=== PATIENT | male | born 1945 | race Caucasian/White ===

== ENCOUNTER 2021-08-24 06:50 | Inpatient (IN) | payer MEDICARE, OTHER ==
[2021-08-22 11:35] LABS: Basophils # (auto) 0.1 10 ^3/uL (0-0.2); Basophils % (auto) 0.8 % (0.0-2.0); Eosinophils # (auto) 0.1 10 ^3/uL (0-0.8); Eosinophils % (auto) 0.9 % (0.0-7.0); Hematocrit 38.2 % (41.0-53.0); Hemoglobin 12.5 g/dL (13.5-17.5); Mean Corpuscular Hemoglobin 24.7 pg (28.0-32.0); Mean Corpuscular Hgb Conc. 32.7 g/dL (32.0-36.0); Mean Corpuscular Volume 75.5 fL (80.0-100.0); Monocytes # (auto) 0.9 10 ^3/uL (0-1.3); Monocytes % (auto) 6.7 % (0.0-12.0); Neutrophils # (auto) 7.9 10 ^3/uL (1.6-8.6); Neutrophils % (auto) 60.6 % (37.0-80.0); Red Blood Cells 5.05 10^6/uL (4.5-5.90); Red Cell Distribution Width 17.5 % (11.8-14.3)
[2021-08-22 12:02] LABS: INR 1.21 (0.9-1.15); Partial Thromboplastin Time 34.5 sec (23.6-33.0)
[2021-08-22 12:27] LABS: Urine Amorphous Crystal FEW /hpf (None Seen); Urine Bacteria FEW /hpf (None Seen); Urine Blood 1+ /uL (Negative); Urine Specific Gravity 1.024 (1.001-1.035); Urine WBC 2 /hpf (0 - 3)
[2021-08-22 13:14] LABS: Potassium 4.7 mmol/L (3.5-5.1)
[2021-08-22 13:45] LABS: BUN/Creatinine Ratio 10.1; Bilirubin, Total 0.3 mg/dL (0.2-1.0); Calcium 9.1 mg/dL (8.5-10.1); Total Protein 6.9 g/dL (6.4-8.2)
[2021-08-24] VITALS (20 sets, daily range): BP systolic 98–130; BP diastolic 44–63
[~2021-08-24] VITALS: Ht 182.9 cm; Wt 88.4 kg
[~2021-08-24 06:50] MED LIST: ALBUAER3 IN; ATOR20TA50 PO; CLIN300C8 PO; CLOP75TA28 PO; CLOT-32 EX; FENO160T8 PO; FLUT1AER3 IN; HYDR-3682 PO; LEVEMIR SC; LOSA-39 PO; METO25TA5 PO; NIFE1TAB30 PO; PANT40TA2 PO; SEMA2INJ SC; SITA100T7 PO; TRIA0.1O EX
[2021-08-24] MEDS ORDERED: VANCOMYCIN HCL 1000 MG VL ONE (07:34)
[2021-08-24] MEDS ORDERED: TRANEXAMIC ACID 20 ML ONE (07:35)
[2021-08-24] MEDS ORDERED: CLINDAMYCIN 600MG IV 50 ML IV ONE (07:50)
[2021-08-24] MEDS ORDERED: TETRACAINE 1% INJ 2 ML VIAL IJ ONE (07:54)
[2021-08-24] MEDS ORDERED: fentaNYL CITRATE 100 MCG/2 ML VL ONE (07:57)
[2021-08-24] MEDS ORDERED: MORPHINE SULF PF 2 MG/2 ML SYRG ONE (07:57)
[2021-08-24] MEDS ORDERED: MIDAZOLAM HCL 2MG/2ML 2ml VIAL (1mg/ml) ONE (07:57)
[2021-08-24] MEDS ORDERED: ONDANSETRON HCL 4 MG/2 ML VIAL IV ONE (08:00)
[2021-08-24] MEDS ORDERED: SUCCINYLCHOLINE CHLORIDE 20 MG/ML 10ML VIAL IV ONE (08:00)
[2021-08-24] MEDS ORDERED: LIDOCAINE HCL 100 MG/5ML (2%) SYRG INJ IV ONE (08:20)
[2021-08-24] MEDS ORDERED: PROPOFOL 10 MG/ML 20 ML IV ONE (09:28)
[2021-08-24] MEDS ORDERED: HYDROmorphone HCL 2 MG/ML VL ONE (09:33)
[2021-08-24] MEDS: SODIUM CHLORIDE 0.9% 1,000 ML IV SCH ×2 (11:30→19:30)
[2021-08-24] MEDS ORDERED: diphenhdrAMINE HCL 50 MG/1 ML VL IV PRN (11:30)
[2021-08-24] MEDS ORDERED: ONDANSETRON HCL 4 MG/2 ML VIAL IV PRN (11:30)
[2021-08-24] MEDS ORDERED: HYDROmorphone HCL 2 MG/ML VL IV PRN ×2 (11:30)
[2021-08-24] MEDS ORDERED: oxyCODONE HCL 5MG TAB PO PRN (11:30)
[2021-08-24] MEDS ORDERED: NALBUPHINE HCL 10 MG/1ml INJECTION SUBCUT ONE (11:30)
[2021-08-24] MEDS ORDERED: DexAMETHasone SOD PHOS 10MG/1ML VIAL INJ IV PRN (11:30)
[2021-08-24] MEDS ORDERED: NALOXONE HCL 0.4 MG/ML VIAL IV PRN (11:30)
[2021-08-24] MEDS ORDERED: DEXTROSE (50%) 50ML SYRG IV PRN (12:15)
[2021-08-24 13:26] LABS: Basophils # (auto) 0.1 10 ^3/uL (0-0.2); Basophils % (auto) 0.4 % (0.0-2.0); Eosinophils # (auto) 0.1 10 ^3/uL (0-0.8); Eosinophils % (auto) 0.2 % (0.0-7.0); Lymphocytes # (auto) 1.8 10 ^3/uL (0.4-5.4); Mean Corpuscular Hemoglobin 24.2 pg (28.0-32.0); Monocytes # (auto) 0.6 10 ^3/uL (0-1.3); Neutrophils % (auto) 88.8 % (37.0-80.0)
[2021-08-24 13:30] LABS: Hemoglobin 8.9 g/dL (13.5-17.5); Lymphocytes % (auto) 7.8 % (10.0-50.0); Mean Corpuscular Hgb Conc. 31.8 g/dL (32.0-36.0); Monocytes % (auto) 2.8 % (0.0-12.0); Neutrophils # (auto) 20.2 10 ^3/uL (1.6-8.6); Red Blood Cells 3.68 10^6/uL (4.5-5.90); Red Cell Distribution Width 17.4 % (11.8-14.3); White Blood Cell 22.8 10^3/uL (4.4-10.8)
[2021-08-24 13:59] LABS: Calcium 7.9 mg/dL (8.5-10.1)
[2021-08-24] MEDS: CLINDAMYCIN 600MG IV 50 ML IV SCH ×2 (14:00→21:34)
[2021-08-24] MEDS: hydrOXYzine 25 MG TAB or CAP PO SCH ×2 (14:00→21:35)
[2021-08-24 14:02] LABS: BUN/Creatinine Ratio 11.1
[2021-08-24] MEDS ORDERED: PROMETHAZINE HCL 25 MG/ML 1ML ONE (15:15)
[2021-08-24] MEDS ORDERED: PROMETHAZINE HCL 25 MG/ML 1ML IV ONE (15:15)
[2021-08-24 15:27] LABS: Potassium 5.8 mmol/L (3.5-5.1)
[2021-08-24 16:35] LABS: BUN/Creatinine Ratio 11.2; Calcium 7.8 mg/dL (8.5-10.1)
[2021-08-24 16:46] LABS: Albumin 2.6 g/dL (3.4-5.0); Bilirubin, Total 0.4 mg/dL (0.2-1.0); Total Protein 5.6 g/dL (6.4-8.2)
[2021-08-24 17:12] LABS: Potassium 7.4 mmol/L (3.5-5.1)
[2021-08-24] MEDS ORDERED: FUROSEMIDE 40 MG/4 ML VIAL ONE (17:24)
[2021-08-24] MEDS: KETOROLAC TROMETH 30 MG/ML 1ML VIAL IV SCH ×2 (18:00→23:48)
[2021-08-24] MEDS ORDERED: InsuLIN REG 1unit/0.01ml Soln (100units/ml) IV ONE ×2 (18:00→23:00)
[2021-08-24] MEDS ORDERED: SODIUM BICARBONATE 8.4% INJ 50ML SYRINGE IV ONE ×2 (18:00→23:00)
[2021-08-24] MEDS ORDERED: CALCIUM CHL 100MG/ML 1,000 MG in D5W 5% 100 ML IV ONE (18:00)
[2021-08-24] MEDS ORDERED: DEXTROSE (50%) 50ML SYRG IV ONE ×2 (18:00→23:00)
[2021-08-24] MEDS: ATORVASTATIN 20 MG TAB PO SCH (18:00)
[2021-08-24] MEDS: ACETAMINOPHEN 325 MG TAB PO SCH ×2 (18:00→23:52)
[2021-08-24] MEDS ORDERED: ALBUTEROL SULF HFA 90MCG INH 200DOSE IN SCH (18:00)
[2021-08-24] MEDS: InsuLIN REG 1unit/0.01ml Soln (100units/ml) SC SCH (18:01)
[2021-08-24] MEDS: ACCU-CHEK COMFORT CURVE STRIP VI SCH (18:01)
[2021-08-24] MEDS ORDERED: FUROSEMIDE 40 MG/4 ML VIAL IV ONE (18:45)
[2021-08-24] MEDS: ALBUTEROL SULF 2.5 MG/0.5ML(0.5%) NEB SOLN NEB SCH (18:51)
[2021-08-24] MEDS: CALCIUM CHL 100MG/ML 1,000 MG in D5W 5% 100 ML IV SCH ×2 (19:00→19:42)
[2021-08-24] MEDS: D5W/SOD CHL 0.45% 1,000 ML IV SCH (19:03)
[2021-08-24] MEDS: METOPROLOL TARTRATE 25 MG TAB PO SCH (21:35)
[2021-08-24 22:15] LABS: Albumin 2.3 g/dL (3.4-5.0); Calcium 9.5 mg/dL (8.5-10.1)
[2021-08-24 22:20] LABS: Bilirubin, Total 0.4 mg/dL (0.2-1.0); Total Protein 5.6 g/dL (6.4-8.2)
[2021-08-24 22:33] LABS: Potassium 6.1 mmol/L (3.5-5.1)
[2021-08-24] MEDS ORDERED: ALBUTEROL SULF 2.5 MG/0.5ML(0.5%) NEB SOLN NEB ONE (23:00)
[2021-08-24] MEDS ORDERED: CALCIUM GLUC 1,000mg/50ml-NS 50 ML IV ONE (23:00)
[2021-08-25] VITALS (14 sets, daily range): BP systolic 101–137; BP diastolic 41–59
[2021-08-25] MEDS: SODIUM CHLORIDE 0.9% 1,000 ML IV SCH ×3 (03:14→19:32)
[2021-08-25 03:58] LABS: Basophils # (auto) 0 10 ^3/uL (0-0.2); Eosinophils # (auto) 0 10 ^3/uL (0-0.8); Hemoglobin 7.9 g/dL (13.5-17.5); Lymphocytes # (auto) 0.9 10 ^3/uL (0.4-5.4); Monocytes # (auto) 0.8 10 ^3/uL (0-1.3)
[2021-08-25 04:00] LABS: Basophils % (auto) 0.2 % (0.0-2.0); Hematocrit 25.1 % (41.0-53.0); Lymphocytes % (auto) 7.3 % (10.0-50.0); Mean Corpuscular Hemoglobin 23.9 pg (28.0-32.0); Mean Corpuscular Hgb Conc. 31.4 g/dL (32.0-36.0); Mean Corpuscular Volume 76.2 fL (80.0-100.0); Monocytes % (auto) 6.4 % (0.0-12.0); Neutrophils # (auto) 10.9 10 ^3/uL (1.6-8.6); Neutrophils % (auto) 86.1 % (37.0-80.0); Red Cell Distribution Width 17.4 % (11.8-14.3); White Blood Cell 12.7 10^3/uL (4.4-10.8)
[2021-08-25 04:20] LABS: Albumin 2.2 g/dL (3.4-5.0); Calcium 9.1 mg/dL (8.5-10.1); Potassium 5.5 mmol/L (3.5-5.1)
[2021-08-25 04:25] LABS: BUN/Creatinine Ratio 10.5; Bilirubin, Total 0.4 mg/dL (0.2-1.0); Total Protein 5.5 g/dL (6.4-8.2)
[2021-08-25] MEDS: KETOROLAC TROMETH 30 MG/ML 1ML VIAL IV SCH (06:06)
[2021-08-25] MEDS: hydrOXYzine 25 MG TAB or CAP PO SCH (06:06)
[2021-08-25] MEDS: ACETAMINOPHEN 325 MG TAB PO SCH ×4 (06:06→23:37)
[2021-08-25] MEDS: ACCU-CHEK COMFORT CURVE STRIP VI SCH ×4 (06:07→18:37)
[2021-08-25] MEDS: InsuLIN REG 1unit/0.01ml Soln (100units/ml) SC SCH ×5 (06:08→23:39)
[2021-08-25] MEDS: D5W/SOD CHL 0.45% 1,000 ML IV SCH (07:20)
[2021-08-25] MEDS: ALBUTEROL SULF 2.5 MG/0.5ML(0.5%) NEB SOLN NEB SCH ×4 (08:32→18:00)
[2021-08-25] MEDS ORDERED: NIFEdipine ER 30 MG TAB PO SCH (10:00)
[2021-08-25] MEDS: METOPROLOL TARTRATE 25 MG TAB PO SCH ×2 (10:00→23:22)
[2021-08-25] MEDS: APIXABAN 2.5 MG TAB PO SCH ×2 (10:00→23:21)
[2021-08-25] MEDS ORDERED: PANTOPRAZOLE 40 MG TAB PO SCH (10:00)
[2021-08-25] MEDS ORDERED: LOSARTAN POTASSIUM 50 MG TAB PO SCH (10:00)
[2021-08-25] MEDS: ONDANSETRON HCL 4 MG/2 ML VIAL IV PRN ×2 (11:44→23:42)
[2021-08-25] MEDS ORDERED: PANTOPRAZOLE 40 MG/10 ML VIAL INJ IV ONE (12:30)
[2021-08-25] MEDS ORDERED: hydrOXYzine 25 MG TAB or CAP PO PRN (12:30)
[2021-08-25] MEDS ORDERED: SODIUM ZIRCONIUM CYCL 10 GM PAK PO ONE (12:30)
[2021-08-25] MEDS ORDERED: NITROGLYCERIN 0.4 MG SL TAB SL PRN (12:45)
[2021-08-25] MEDS: SODIUM ZIRCONIUM CYCL 10 GM PAK PO SCH ×2 (14:00→21:14)
[2021-08-25] MEDS ORDERED: BUMETANIDE 2.5mg/10ml (0.25 mg/ml) INJ IV ONE (14:45)
[2021-08-25] MEDS: oxyCODONE HCL 5MG TAB PO PRN ×2 (15:29→23:39)
[2021-08-25 15:52] LABS: BUN/Creatinine Ratio 9.6; Calcium 8.6 mg/dL (8.5-10.1); Potassium 4.9 mmol/L (3.5-5.1)
[2021-08-25] MEDS: ATORVASTATIN 20 MG TAB PO SCH (17:44)
[2021-08-26] VITALS (7 sets, daily range): BP systolic 130–166; BP diastolic 65–82
[2021-08-26] MEDS: ACCU-CHEK COMFORT CURVE STRIP VI SCH ×4 (00:04→17:59)
[2021-08-26] MEDS: SODIUM ZIRCONIUM CYCL 10 GM PAK PO SCH ×3 (06:00→21:03)
[2021-08-26] MEDS: ALBUTEROL SULF 2.5 MG/0.5ML(0.5%) NEB SOLN NEB SCH ×5 (06:00→18:41)
[2021-08-26] MEDS: ACETAMINOPHEN 325 MG TAB PO SCH ×3 (06:05→17:59)
[2021-08-26] MEDS: InsuLIN REG 1unit/0.01ml Soln (100units/ml) SC SCH ×3 (06:06→18:00)
[2021-08-26 08:05] LABS: Basophils # (auto) 0 10 ^3/uL (0-0.2); Basophils % (auto) 0.1 % (0.0-2.0); Eosinophils # (auto) 0 10 ^3/uL (0-0.8); Eosinophils % (auto) 0.1 % (0.0-7.0); Lymphocytes # (auto) 0.6 10 ^3/uL (0.4-5.4)
[2021-08-26 08:07] LABS: Hematocrit 23.1 % (41.0-53.0); Hemoglobin 7.3 g/dL (13.5-17.5); Lymphocytes % (auto) 3.7 % (10.0-50.0); Mean Corpuscular Hemoglobin 24.2 pg (28.0-32.0); Mean Corpuscular Hgb Conc. 31.6 g/dL (32.0-36.0); Mean Corpuscular Volume 76.5 fL (80.0-100.0); Monocytes # (auto) 0.9 10 ^3/uL (0-1.3); Neutrophils # (auto) 16.1 10 ^3/uL (1.6-8.6); Neutrophils % (auto) 91.1 % (37.0-80.0); Red Blood Cells 3.02 10^6/uL (4.5-5.90); White Blood Cell 17.6 10^3/uL (4.4-10.8)
[2021-08-26 08:16] LABS: Albumin 2.2 g/dL (3.4-5.0); Calcium 8.1 mg/dL (8.5-10.1); Potassium 4.7 mmol/L (3.5-5.1)
[2021-08-26 08:19] LABS: Bilirubin, Total 0.6 mg/dL (0.2-1.0)
[2021-08-26] MEDS ORDERED: LACTULOSE 20Gm/30ML SOLN PO PRN (09:00)
[2021-08-26] MEDS: PANTOPRAZOLE 40 MG/10 ML VIAL INJ IV SCH (09:44)
[2021-08-26] MEDS: APIXABAN 2.5 MG TAB PO SCH ×2 (09:44→21:51)
[2021-08-26] MEDS: DOCUSATE SOD 100 MG CAP PO SCH ×2 (09:44→21:51)
[2021-08-26] MEDS: METOPROLOL TARTRATE 25 MG TAB PO SCH ×2 (09:45→21:52)
[2021-08-26] MEDS: BUMETANIDE INJECTION 25 MG in GIVE UN-DILUTED 0 ML IV SCH (15:46)
[2021-08-26] MEDS: SODIUM CHLORIDE 0.9% 1,000 ML IV SCH (15:47)
[2021-08-26] MEDS: ATORVASTATIN 20 MG TAB PO SCH (17:58)
[2021-08-27] MEDS: ACETAMINOPHEN 325 MG TAB PO SCH ×4 (00:43→18:04)
[2021-08-27] MEDS: ACCU-CHEK COMFORT CURVE STRIP VI SCH ×4 (00:44→18:05)
[2021-08-27] MEDS: InsuLIN REG 1unit/0.01ml Soln (100units/ml) SC SCH ×4 (00:49→18:07)
[2021-08-27] MEDS: SODIUM CHLORIDE 0.9% 1,000 ML IV SCH (04:15)
[2021-08-27 05:00] VITALS: BP 162/75
[2021-08-27] MEDS: ALBUTEROL SULF 2.5 MG/0.5ML(0.5%) NEB SOLN NEB SCH ×4 (06:09→22:16)
[2021-08-27 07:22] LABS: Basophils # (auto) 0 10 ^3/uL (0-0.2); Basophils % (auto) 0.2 % (0.0-2.0); Eosinophils # (auto) 0 10 ^3/uL (0-0.8); Eosinophils % (auto) 0.1 % (0.0-7.0); Lymphocytes # (auto) 1.5 10 ^3/uL (0.4-5.4); Lymphocytes % (auto) 9.7 % (10.0-50.0); Neutrophils # (auto) 12.8 10 ^3/uL (1.6-8.6); White Blood Cell 15.3 10^3/uL (4.4-10.8)
[2021-08-27 07:28] LABS: Hematocrit 21.8 % (41.0-53.0); Mean Corpuscular Hemoglobin 24.9 pg (28.0-32.0); Mean Corpuscular Hgb Conc. 32.3 g/dL (32.0-36.0); Mean Corpuscular Volume 77.3 fL (80.0-100.0); Monocytes % (auto) 6.7 % (0.0-12.0); Neutrophils % (auto) 83.3 % (37.0-80.0); Red Blood Cells 2.82 10^6/uL (4.5-5.90); Red Cell Distribution Width 17.6 % (11.8-14.3)
[2021-08-27 07:55] LABS: BUN/Creatinine Ratio 10.6; Calcium 7.9 mg/dL (8.5-10.1)
[2021-08-27 08:42] VITALS: BP 157/73
[2021-08-27] MEDS: PANTOPRAZOLE 40 MG/10 ML VIAL INJ IV SCH (10:41)
[2021-08-27] MEDS: APIXABAN 2.5 MG TAB PO SCH (10:42)
[2021-08-27] MEDS: DOCUSATE SOD 100 MG CAP PO SCH ×2 (10:42→22:23)
[2021-08-27] MEDS: METOPROLOL TARTRATE 25 MG TAB PO SCH ×2 (10:42→22:23)
[2021-08-27] MEDS: SODIUM ZIRCONIUM CYCL 10 GM PAK PO SCH ×2 (14:00→22:00)
[2021-08-27] MEDS: BUMETANIDE INJECTION 25 MG in GIVE UN-DILUTED 0 ML IV SCH (16:14)
[2021-08-27 16:49] VITALS: BP 162/79
[2021-08-27] MEDS: ATORVASTATIN 20 MG TAB PO SCH (18:04)
[2021-08-27 22:00] VITALS: BP 155/75
[2021-08-28] MEDS: ACCU-CHEK COMFORT CURVE STRIP VI SCH ×4 (00:31→18:22)
[2021-08-28] MEDS: ACETAMINOPHEN 325 MG TAB PO SCH ×4 (00:31→18:23)
[2021-08-28] MEDS: InsuLIN REG 1unit/0.01ml Soln (100units/ml) SC SCH ×4 (00:32→18:23)
[2021-08-28 03:40] VITALS: BP 150/65
[2021-08-28 05:00] VITALS: BP 164/93
[2021-08-28] MEDS ORDERED: SODIUM CHLORIDE 0.9% 1,000 ML IV SCH (05:30)
[2021-08-28] MEDS: ALBUTEROL SULF 2.5 MG/0.5ML(0.5%) NEB SOLN NEB SCH ×3 (06:25→19:39)
[2021-08-28] MEDS ORDERED: SODIUM CHL 0.9% 1000 ML BAG XX ONE (07:00)
[2021-08-28 09:14] VITALS: BP 155/81
[2021-08-28 09:34] LABS: Basophils # (auto) 0 10 ^3/uL (0-0.2); Eosinophils # (auto) 0 10 ^3/uL (0-0.8); Hemoglobin 7.8 g/dL (13.5-17.5); Lymphocytes # (auto) 0.9 10 ^3/uL (0.4-5.4); Monocytes % (auto) 7.6 % (0.0-12.0)
[2021-08-28 09:35] LABS: Basophils % (auto) 0.3 % (0.0-2.0); Eosinophils % (auto) 0.2 % (0.0-7.0); Hematocrit 24.4 % (41.0-53.0); Lymphocytes % (auto) 7.1 % (10.0-50.0); Mean Corpuscular Hemoglobin 24.2 pg (28.0-32.0); Mean Corpuscular Hgb Conc. 32.1 g/dL (32.0-36.0); Mean Corpuscular Volume 75.4 fL (80.0-100.0); Neutrophils # (auto) 10.7 10 ^3/uL (1.6-8.6); Neutrophils % (auto) 84.8 % (37.0-80.0); Red Blood Cells 3.23 10^6/uL (4.5-5.90); Red Cell Distribution Width 17.5 % (11.8-14.3); White Blood Cell 12.6 10^3/uL (4.4-10.8)
[2021-08-28] MEDS: PANTOPRAZOLE 40 MG/10 ML VIAL INJ IV SCH (09:43)
[2021-08-28] MEDS: METOPROLOL TARTRATE 25 MG TAB PO SCH ×2 (09:44→21:32)
[2021-08-28] MEDS: DOCUSATE SOD 100 MG CAP PO SCH ×2 (09:44→21:31)
[2021-08-28 09:49] LABS: Albumin 2.3 g/dL (3.4-5.0); Calcium 8.4 mg/dL (8.5-10.1); Potassium 4.8 mmol/L (3.5-5.1)
[2021-08-28 09:52] LABS: BUN/Creatinine Ratio 12.4; Bilirubin, Total 0.6 mg/dL (0.2-1.0); Total Protein 5.6 g/dL (6.4-8.2)
[2021-08-28] MEDS ORDERED: B-COMPLEX W/ C & FOLIC ACID(NEPHROVITE TAB) PO ONE (10:00)
[2021-08-28 12:30] VITALS: BP 158/71
[2021-08-28] MEDS: SODIUM ZIRCONIUM CYCL 10 GM PAK PO SCH ×2 (14:00→21:22)
[2021-08-28] MEDS: BUMETANIDE INJECTION 25 MG in GIVE UN-DILUTED 0 ML IV SCH (18:00)
[2021-08-28] MEDS: ATORVASTATIN 20 MG TAB PO SCH (18:23)
[2021-08-28] MEDS ORDERED: EPOETIN ALFA-EPBX 4,000 UNIT/ML VIAL SC ONE (21:00)
[2021-08-28 22:00] VITALS: BP 148/82
[2021-08-29] VITALS (9 sets, daily range): BP systolic 124–166; BP diastolic 51–87
[2021-08-29] MEDS: ACETAMINOPHEN 325 MG TAB PO SCH ×4 (00:29→18:01)
[2021-08-29] MEDS: ACCU-CHEK COMFORT CURVE STRIP VI SCH ×4 (00:30→18:01)
[2021-08-29] MEDS: InsuLIN REG 1unit/0.01ml Soln (100units/ml) SC SCH ×4 (00:31→18:11)
[2021-08-29] MEDS: SODIUM ZIRCONIUM CYCL 10 GM PAK PO SCH (06:00)
[2021-08-29] MEDS: ALBUTEROL SULF 2.5 MG/0.5ML(0.5%) NEB SOLN NEB SCH ×4 (06:22→18:00)
[2021-08-29] MEDS ORDERED: SODIUM CHL 0.9% 1000 ML BAG XX ONE (09:30)
[2021-08-29] MEDS: B-COMPLEX W/ C & FOLIC ACID(NEPHROVITE TAB) PO SCH (09:32)
[2021-08-29] MEDS: PANTOPRAZOLE 40 MG/10 ML VIAL INJ IV SCH (09:32)
[2021-08-29] MEDS: DOCUSATE SOD 100 MG CAP PO SCH ×2 (09:33→22:04)
[2021-08-29] MEDS: METOPROLOL TARTRATE 25 MG TAB PO SCH ×2 (09:34→22:00)
[2021-08-29] MEDS ORDERED: levoFLOXacin 250MG 50 ML IV SCH (10:00)
[2021-08-29] MEDS ORDERED: levoFLOXacin 250MG 50 ML IV ONE (10:00)
[2021-08-29 10:02] LABS: Basophils # (auto) 0 10 ^3/uL (0-0.2); Eosinophils # (auto) 0.1 10 ^3/uL (0-0.8); Nucleated Red Blood Cells % 0.2 %
[2021-08-29 10:03] LABS: Basophils % (auto) 0.3 % (0.0-2.0); Eosinophils % (auto) 1.1 % (0.0-7.0); Hemoglobin 8.2 g/dL (13.5-17.5); Lymphocytes % (auto) 9.5 % (10.0-50.0); Mean Corpuscular Hemoglobin 25.1 pg (28.0-32.0); Mean Corpuscular Hgb Conc. 32.9 g/dL (32.0-36.0); Mean Corpuscular Volume 76.3 fL (80.0-100.0); Monocytes # (auto) 1.1 10 ^3/uL (0-1.3); Monocytes % (auto) 9.7 % (0.0-12.0); Neutrophils # (auto) 8.7 10 ^3/uL (1.6-8.6); Neutrophils % (auto) 79.4 % (37.0-80.0); Red Blood Cells 3.28 10^6/uL (4.5-5.90); Red Cell Distribution Width 17.9 % (11.8-14.3)
[2021-08-29 10:14] LABS: Calcium 8.4 mg/dL (8.5-10.1); Potassium 4.5 mmol/L (3.5-5.1)
[2021-08-29] MEDS ORDERED: levoFLOXacin 750MG 150 ML IV ONE (10:15)
[2021-08-29 10:54] LABS: INR 1.29 (0.9-1.15)
[2021-08-29] MEDS: BUMETANIDE 2.5mg/10ml (0.25 mg/ml) INJ IV SCH ×2 (11:48→18:01)
[2021-08-29] MEDS ORDERED: IODIXANOL 320MG/ML 100ML BTL IV ONE (11:49)
[2021-08-29] MEDS ORDERED: LIDOCAINE 2%HCL (LOCAL ANESTH.) INJ 20ML MDV ONE (11:49)
[2021-08-29] MEDS ORDERED: MIDAZOLAM HCL 2MG/2ML 2ml VIAL (1mg/ml) ONE (13:33)
[2021-08-29] MEDS ORDERED: fentaNYL CITRATE 100 MCG/2 ML VL ONE (13:33)
[2021-08-29] MEDS ORDERED: HEPARIN SODIUM (PORCINE) 5000 UNITS/ML 1ML VIAL ONE (13:33)
[2021-08-29] MEDS: ATORVASTATIN 20 MG TAB PO SCH (18:01)
[2021-08-29] MEDS ORDERED: EPOETIN ALFA-EPBX 10,000 UNIT/1ML VIAL SC ONE (21:00)
[2021-08-30] MEDS: ACCU-CHEK COMFORT CURVE STRIP VI SCH ×5 (00:31→23:10)
[2021-08-30] MEDS: InsuLIN REG 1unit/0.01ml Soln (100units/ml) SC SCH ×5 (00:31→23:10)
[2021-08-30] MEDS: BUMETANIDE 2.5mg/10ml (0.25 mg/ml) INJ IV SCH ×4 (00:43→18:05)
[2021-08-30] MEDS: ACETAMINOPHEN 325 MG TAB PO SCH ×4 (00:44→18:06)
[2021-08-30 05:00] VITALS: BP 127/67
[2021-08-30] MEDS: ALBUTEROL SULF 2.5 MG/0.5ML(0.5%) NEB SOLN NEB SCH ×5 (06:27→23:36)
[2021-08-30 09:00] VITALS: BP 130/65
[2021-08-30] MEDS ORDERED: SENNA 8.6 MG TAB PO ONE (09:15)
[2021-08-30 10:20] LABS: Basophils # (auto) 0 10 ^3/uL (0-0.2); Basophils % (auto) 0.3 % (0.0-2.0); Eosinophils # (auto) 0.1 10 ^3/uL (0-0.8); Eosinophils % (auto) 1.4 % (0.0-7.0); Hematocrit 23.9 % (41.0-53.0); Hemoglobin 7.8 g/dL (13.5-17.5); Mean Corpuscular Hemoglobin 24.9 pg (28.0-32.0); Mean Corpuscular Hgb Conc. 32.6 g/dL (32.0-36.0); Mean Corpuscular Volume 76.5 fL (80.0-100.0); Monocytes % (auto) 9.8 % (0.0-12.0); Neutrophils # (auto) 8.1 10 ^3/uL (1.6-8.6); Neutrophils % (auto) 78.5 % (37.0-80.0); Nucleated Red Blood Cells % 0.1 %; Red Blood Cells 3.12 10^6/uL (4.5-5.90); Red Cell Distribution Width 17.6 % (11.8-14.3); White Blood Cell 10.3 10^3/uL (4.4-10.8)
[2021-08-30] MEDS: B-COMPLEX W/ C & FOLIC ACID(NEPHROVITE TAB) PO SCH (10:27)
[2021-08-30] MEDS: DOCUSATE SOD 100 MG CAP PO SCH ×2 (10:27→22:15)
[2021-08-30] MEDS: PANTOPRAZOLE 40 MG/10 ML VIAL INJ IV SCH (10:27)
[2021-08-30] MEDS: METOPROLOL TARTRATE 25 MG TAB PO SCH ×2 (10:28→22:16)
[2021-08-30 11:04] LABS: Potassium 4.4 mmol/L (3.5-5.1)
[2021-08-30 11:08] LABS: BUN/Creatinine Ratio 14.7
[2021-08-30 11:30] VITALS: BP 130/65
[2021-08-30 13:00] VITALS: BP 102/57
[2021-08-30] MEDS: levoFLOXacin 500MG 100 ML IV SCH (15:25)
[2021-08-30 16:47] VITALS: BP 146/66
[2021-08-30] MEDS: ATORVASTATIN 20 MG TAB PO SCH (18:05)
[2021-08-30 22:00] VITALS: BP 137/58
[2021-08-31 05:00] VITALS: BP 140/69
[2021-08-31 05:26] LABS: Basophils # (auto) 0 10 ^3/uL (0-0.2); Eosinophils # (auto) 0.4 10 ^3/uL (0-0.8); Eosinophils % (auto) 2.9 % (0.0-7.0); Neutrophils # (auto) 8.7 10 ^3/uL (1.6-8.6); Nucleated Red Blood Cells % 0.2 %; Red Cell Distribution Width 18.3 % (11.8-14.3); White Blood Cell 12.3 10^3/uL (4.4-10.8)
[2021-08-31 05:28] LABS: Basophils % (auto) 0.3 % (0.0-2.0); Hematocrit 22.4 % (41.0-53.0); Hemoglobin 7.4 g/dL (13.5-17.5); Lymphocytes # (auto) 2.2 10 ^3/uL (0.4-5.4); Lymphocytes % (auto) 17.5 % (10.0-50.0); Mean Corpuscular Hgb Conc. 33.1 g/dL (32.0-36.0); Mean Corpuscular Volume 75.7 fL (80.0-100.0); Monocytes # (auto) 1.1 10 ^3/uL (0-1.3); Monocytes % (auto) 9.1 % (0.0-12.0); Neutrophils % (auto) 70.2 % (37.0-80.0); Red Blood Cells 2.96 10^6/uL (4.5-5.90)
[2021-08-31 05:45] LABS: Calcium 7.9 mg/dL (8.5-10.1); Potassium 4.3 mmol/L (3.5-5.1)
[2021-08-31 05:47] LABS: BUN/Creatinine Ratio 15.6
[2021-08-31] MEDS: InsuLIN REG 1unit/0.01ml Soln (100units/ml) SC SCH ×3 (06:00→17:37)
[2021-08-31] MEDS: BUMETANIDE 2.5mg/10ml (0.25 mg/ml) INJ IV SCH ×4 (06:20→22:15)
[2021-08-31] MEDS: ACETAMINOPHEN 325 MG TAB PO SCH ×4 (06:20→17:22)
[2021-08-31] MEDS: ACCU-CHEK COMFORT CURVE STRIP VI SCH ×3 (06:27→17:37)
[2021-08-31] MEDS: ALBUTEROL SULF 2.5 MG/0.5ML(0.5%) NEB SOLN NEB SCH ×3 (07:42→18:36)
[2021-08-31 09:00] VITALS: BP 156/74
[2021-08-31] MEDS ORDERED: DOCUSATE SOD 100 MG CAP PO ONE (09:15)
[2021-08-31] MEDS ORDERED: LACTULOSE 20Gm/30ML SOLN PO ONE (09:15)
[2021-08-31 10:14] LABS: Hepatitis B Surface Antibody Negative (Negative)
[2021-08-31] MEDS: DOCUSATE SOD 100 MG CAP PO SCH ×2 (10:34→22:15)
[2021-08-31] MEDS: PANTOPRAZOLE 40 MG/10 ML VIAL INJ IV SCH (10:34)
[2021-08-31] MEDS: METOPROLOL TARTRATE 25 MG TAB PO SCH ×2 (10:35→22:16)
[2021-08-31] MEDS: B-COMPLEX W/ C & FOLIC ACID(NEPHROVITE TAB) PO SCH (10:36)
[2021-08-31 10:39] LABS: Hepatitis A Total Antibody Negative (Negative)
[2021-08-31] MEDS: ONDANSETRON HCL 4 MG/2 ML VIAL IV PRN (10:53)
[2021-08-31 11:16] LABS: Hepatitis C Antibody Negative (Negative)
[2021-08-31 11:21] LABS: Hepatitis C Antibody Negative (Negative)
[2021-08-31 11:31] LABS: Hepatitis B Surface Antibody Negative (Negative)
[2021-08-31 12:11] LABS: Hepatitis A Total Antibody Negative (Negative)
[2021-08-31 12:36] LABS: Hepatitis A Ab IgM Negative; Hepatitis C Antibody Negative (Negative)
[2021-08-31 13:00] VITALS: BP 149/79
[2021-08-31 17:00] VITALS: BP 144/76
[2021-08-31] MEDS: ATORVASTATIN 20 MG TAB PO SCH (17:21)
[2021-09-01] MEDS: ALBUTEROL SULF 2.5 MG/0.5ML(0.5%) NEB SOLN NEB SCH ×4 (00:21→18:24)
[2021-09-01] MEDS: InsuLIN REG 1unit/0.01ml Soln (100units/ml) SC SCH ×4 (00:26→19:42)
[2021-09-01] MEDS: ACCU-CHEK COMFORT CURVE STRIP VI SCH ×4 (00:26→19:22)
[2021-09-01 05:00] VITALS: BP 142/57
[2021-09-01] MEDS: BUMETANIDE 2.5mg/10ml (0.25 mg/ml) INJ IV SCH ×3 (07:00→22:53)
[2021-09-01] MEDS ORDERED: SODIUM CHL 0.9% 1000 ML BAG XX ONE (07:00)
[2021-09-01 08:52] VITALS: BP 142/60
[2021-09-01] MEDS: DOCUSATE SOD 100 MG CAP PO SCH ×2 (10:00→22:50)
[2021-09-01] MEDS: B-COMPLEX W/ C & FOLIC ACID(NEPHROVITE TAB) PO SCH (10:20)
[2021-09-01] MEDS: METOPROLOL TARTRATE 25 MG TAB PO SCH ×2 (10:20→22:49)
[2021-09-01] MEDS: PANTOPRAZOLE 40 MG/10 ML VIAL INJ IV SCH (10:20)
[2021-09-01] MEDS: ACETAMINOPHEN 325 MG TAB PO SCH (10:43)
[2021-09-01 12:26] VITALS: BP 122/69
[2021-09-01 16:19] LABS: Hematocrit 24.2 % (41.0-53.0); Hemoglobin 7.6 g/dL (13.5-17.5)
[2021-09-01 16:37] VITALS: BP 131/52
[2021-09-01] MEDS: ATORVASTATIN 20 MG TAB PO SCH (19:42)
[2021-09-01] MEDS: levoFLOXacin 500MG 100 ML IV SCH (20:16)
[2021-09-01] MEDS ORDERED: EPOETIN ALFA-EPBX 10,000 UNIT/1ML VIAL SC ONE (21:00)
[2021-09-01 22:00] VITALS: BP 104/54
[2021-09-02] MEDS: ALBUTEROL SULF 2.5 MG/0.5ML(0.5%) NEB SOLN NEB SCH ×3 (00:33→12:10)
[2021-09-02] MEDS: ACCU-CHEK COMFORT CURVE STRIP VI SCH ×3 (00:49→12:33)
[2021-09-02] MEDS: InsuLIN REG 1unit/0.01ml Soln (100units/ml) SC SCH ×3 (00:51→12:34)
[2021-09-02 05:00] VITALS: BP 151/61
[2021-09-02] MEDS: ACETAMINOPHEN 325 MG TAB PO SCH ×3 (06:00→12:00)
[2021-09-02] MEDS: BUMETANIDE 2.5mg/10ml (0.25 mg/ml) INJ IV SCH ×2 (06:24→14:38)
[2021-09-02 08:49] VITALS: BP 131/61
[2021-09-02 09:00] VITALS: BP 127/61
[2021-09-02] MEDS: METOPROLOL TARTRATE 25 MG TAB PO SCH (09:40)
[2021-09-02] MEDS: PANTOPRAZOLE 40 MG/10 ML VIAL INJ IV SCH (09:40)
[2021-09-02] MEDS: B-COMPLEX W/ C & FOLIC ACID(NEPHROVITE TAB) PO SCH (09:40)
[2021-09-02] MEDS: DOCUSATE SOD 100 MG CAP PO SCH (09:41)
[2021-09-02 13:00] VITALS: BP 126/57
== END 2021-09-02 17:20 | DRG 469 ==
LOC: SUR 06:50 → OVERFLOW 11:28 → WEST WING 17:01 → ICU WEST 17:45 → TELE-CENTR 08-25 17:17
PROVIDERS: ADMIT Orthopaedic Surgery; ATTEND Internal Medicine
PROC: 0SRB0JZ Replacement of Left Hip Joint with Synthetic Substitute, Open Approach (ICD-10-PCS; principal; 2021-08-24 08:01)
PROC: 0JH63XZ Insertion of Tunneled Vascular Access Device into Chest Subcutaneous Tissue and Fascia, Percutaneous Approach (ICD-10-PCS; 2021-08-29)
PROC: 02HV33Z Insertion of Infusion Device into Superior Vena Cava, Percutaneous Approach (ICD-10-PCS; 2021-08-29)
PROC: B548ZZA Ultrasonography of Superior Vena Cava, Guidance (ICD-10-PCS; 2021-08-29)
PROC: B518ZZA Fluoroscopy of Superior Vena Cava, Guidance (ICD-10-PCS; 2021-08-29)
PROC: 5A1D70Z Performance of Urinary Filtration, Intermittent, Less than 6 Hours Per Day (ICD-10-PCS; 2021-08-29)
DX: M16.12 Unilateral primary osteoarthritis, left hip (principal); N17.0 Acute kidney failure with tubular necrosis; G93.41 Metabolic encephalopathy; J18.9 Pneumonia, unspecified organism; N18.4 Chronic kidney disease, stage 4 (severe); R65.10 Systemic inflammatory response syndrome (SIRS) of non-infectious origin without acute organ dysfunction; J98.11 Atelectasis; E87.5 Hyperkalemia; D63.1 Anemia in chronic kidney disease; E11.22 Type 2 diabetes mellitus with diabetic chronic kidney disease; E88.09 Other disorders of plasma-protein metabolism, not elsewhere classified; J44.9 Chronic obstructive pulmonary disease, unspecified; I25.10 Atherosclerotic heart disease of native coronary artery without angina pectoris; E66.9 Obesity, unspecified; I12.9 Hypertensive chronic kidney disease with stage 1 through stage 4 chronic kidney disease, or unspecified chronic kidney disease; Z96.642 Presence of left artificial hip joint; Z20.822 Contact with and (suspected) exposure to COVID-19; K21.9 Gastro-esophageal reflux disease without esophagitis; I25.2 Old myocardial infarction; Z68.26 Body mass index [BMI] 26.0-26.9, adult; Z79.4 Long term (current) use of insulin; Z79.84 Long term (current) use of oral hypoglycemic drugs; Z79.899 Other long term (current) drug therapy; Z87.891 Personal history of nicotine dependence; Z95.5 Presence of coronary angioplasty implant and graft; Z99.2 Dependence on renal dialysis; Z88.0 Allergy status to penicillin
CPT/HCPCS: 36415; 36558; 36600; 71045; 72170; 73501; 76000; 76937; 76942; 77001; 80048; 80053; 81001; 82805; 82962; 84484; 85014; 85018; 85025; 85610; 85730; 86704; 86706; 86708; 86709; 86803; 86850; 86900; 86901; 87081; 87340; 87426; 90935; 93005; 93306; 94640; 97110; 97116; 97163; 97530; 99152; C1776; C9113; G0378; J0330; J1642; J1815; J1885; J1956; J2250; J2405; J2704; J3490; J7060; Q9967

== ENCOUNTER 2021-09-08 13:33 | Inpatient (IN) | payer MEDICARE, OTHER ==
[~2021-09-08] VITALS: Ht 193 cm; Wt 88.5 kg
[2021-09-08 15:02] LABS: Eosinophils # (auto) 0.1 10 ^3/uL (0-0.8); Neutrophils # (auto) 9.9 10 ^3/uL (1.6-8.6); White Blood Cell 11.6 10^3/uL (4.4-10.8)
[2021-09-08 15:04] LABS: Basophils # (auto) 0.1 10 ^3/uL (0-0.2); Basophils % (auto) 0.6 % (0.0-2.0); Eosinophils % (auto) 0.8 % (0.0-7.0); Hemoglobin 8.6 g/dL (13.5-17.5); Lymphocytes % (auto) 8.3 % (10.0-50.0); Mean Corpuscular Hgb Conc. 31.8 g/dL (32.0-36.0); Mean Corpuscular Volume 78.6 fL (80.0-100.0); Monocytes # (auto) 0.5 10 ^3/uL (0-1.3); Monocytes % (auto) 4.4 % (0.0-12.0); Neutrophils % (auto) 85.9 % (37.0-80.0); Red Blood Cells 3.43 10^6/uL (4.5-5.90)
[2021-09-08 15:14] LABS: Red Cell Distribution Width 20.4 % (11.8-14.3)
[2021-09-08 15:17] LABS: Albumin 2.1 g/dL (3.4-5.0); Calcium 8.3 mg/dL (8.5-10.1); Potassium 3.8 mmol/L (3.5-5.1)
[2021-09-08 15:26] LABS: BUN/Creatinine Ratio 11.7; Bilirubin, Total 0.4 mg/dL (0.2-1.0); Total Protein 6.1 g/dL (6.4-8.2)
[2021-09-08] MEDS: SODIUM CHLORIDE 0.9% 1,000 ML IV SCH ×2 (20:15→20:58)
[2021-09-08] MEDS ORDERED: MORPHINE SULFATE INJECTION 2 MG/ML SYRG IV PRN (20:15)
[2021-09-08] MEDS ORDERED: NITROGLYCERIN 0.4 MG SL TAB SL PRN (20:15)
[2021-09-08] MEDS ORDERED: DEXTROSE (50%) 50ML SYRG IV PRN (20:15)
[2021-09-08] MEDS ORDERED: ONDANSETRON HCL 4 MG/2 ML VIAL IV PRN (20:15)
[2021-09-08] MEDS ORDERED: DOCUSATE CALCIUM 240 MG CAP PO PRN (20:15)
[2021-09-08] MEDS: AZITHROMYCIN 500MG/ 250ML 250 ML IV SCH (20:58)
[2021-09-08] MEDS ORDERED: LORazepam 0.5 MG TAB PO PRN (22:00)
[2021-09-08] MEDS: BUDESONIDE (INHALATION) 0.5 MG/2 ML NEB NEB SCH (22:27)
[2021-09-08] MEDS: ALBUTEROL SULF 2.5 MG/0.5ML(0.5%) NEB SOLN NEB PRN (22:27)
[2021-09-08] MEDS: IPRATROPIUM BROM 0.5 MG/2.5ML INH SOL NEB PRN (22:27)
[2021-09-08 23:02] VITALS: BP 144/51
[2021-09-08] MEDS: InsuLIN REG 1unit/0.01ml Soln (100units/ml) SC SCH (23:42)
[2021-09-08] MEDS: ACETAMINOPHEN 500 MG TAB PO PRN (23:42)
[2021-09-08] MEDS: ACCU-CHEK COMFORT CURVE STRIP VI SCH (23:42)
[2021-09-08 23:56] VITALS: BP 144/51
[2021-09-09] MEDS: ACCU-CHEK COMFORT CURVE STRIP VI SCH ×5 (04:00→19:57)
[2021-09-09] MEDS: InsuLIN REG 1unit/0.01ml Soln (100units/ml) SC SCH ×5 (04:00→19:59)
[2021-09-09] MEDS: hydrALAZINE HCL 20 MG/ML VL IV PRN (05:17)
[2021-09-09 05:51] LABS: Eosinophils # (auto) 0.2 10 ^3/uL (0-0.8); White Blood Cell 13.4 10^3/uL (4.4-10.8)
[2021-09-09 05:53] LABS: Basophils # (auto) 0.1 10 ^3/uL (0-0.2); Basophils % (auto) 0.5 % (0.0-2.0); Eosinophils % (auto) 1.2 % (0.0-7.0); Hematocrit 25.9 % (41.0-53.0); Lymphocytes # (auto) 1.8 10 ^3/uL (0.4-5.4); Lymphocytes % (auto) 13.1 % (10.0-50.0); Mean Corpuscular Hemoglobin 24.7 pg (28.0-32.0); Mean Corpuscular Hgb Conc. 30.9 g/dL (32.0-36.0); Mean Corpuscular Volume 79.9 fL (80.0-100.0); Monocytes # (auto) 0.9 10 ^3/uL (0-1.3); Monocytes % (auto) 6.7 % (0.0-12.0); Neutrophils # (auto) 10.5 10 ^3/uL (1.6-8.6); Neutrophils % (auto) 78.5 % (37.0-80.0); Red Blood Cells 3.24 10^6/uL (4.5-5.90)
[2021-09-09 05:58] LABS: Red Cell Distribution Width 20.5 % (11.8-14.3)
[2021-09-09 06:01] LABS: Calcium 7.8 mg/dL (8.5-10.1); Potassium 3.9 mmol/L (3.5-5.1)
[2021-09-09 06:04] VITALS: BP 105/64
[2021-09-09 06:04] LABS: BUN/Creatinine Ratio 12.8; Bilirubin, Total 0.3 mg/dL (0.2-1.0); INR 1.24 (0.9-1.15); Total Protein 4.8 g/dL (6.4-8.2)
[2021-09-09] MEDS: ALBUTEROL SULF 2.5 MG/0.5ML(0.5%) NEB SOLN NEB PRN ×2 (07:22→21:03)
[2021-09-09] MEDS: IPRATROPIUM BROM 0.5 MG/2.5ML INH SOL NEB PRN ×2 (07:22→21:03)
[2021-09-09] MEDS: BUDESONIDE (INHALATION) 0.5 MG/2 ML NEB NEB SCH ×2 (07:22→21:03)
[2021-09-09 09:00] VITALS: BP 150/68
[2021-09-09] MEDS: PANTOPRAZOLE 40 MG TAB PO SCH (09:58)
[2021-09-09] MEDS: AZITHROMYCIN 500MG/ 250ML 250 ML IV SCH (09:58)
[2021-09-09] MEDS: ENOXAPARIN SOD 30 MG/0.3 ML SYRINGE SC SCH (09:59)
[2021-09-09] MEDS: ACETAMINOPHEN 500 MG TAB PO PRN ×2 (10:41→22:50)
[2021-09-09 12:33] VITALS: BP 153/64
[2021-09-09 16:37] VITALS: BP 150/82
[2021-09-09] MEDS: SODIUM CHLORIDE 0.9% 1,000 ML IV SCH (20:15)
[2021-09-09] MEDS ORDERED: LORazepam 2MG/ML-1ML VIAL IV PRN (21:30)
[2021-09-09 21:51] VITALS: BP 128/60
[2021-09-10] MEDS: ACCU-CHEK COMFORT CURVE STRIP VI SCH ×6 (00:19→20:30)
[2021-09-10] MEDS: InsuLIN REG 1unit/0.01ml Soln (100units/ml) SC SCH ×6 (04:18→20:23)
[2021-09-10 05:00] VITALS: BP 173/69
[2021-09-10] MEDS: hydrALAZINE HCL 20 MG/ML VL IV PRN (05:28)
[2021-09-10] MEDS: IPRATROPIUM BROM 0.5 MG/2.5ML INH SOL NEB PRN ×2 (06:46→21:44)
[2021-09-10] MEDS: ALBUTEROL SULF 2.5 MG/0.5ML(0.5%) NEB SOLN NEB PRN (06:46)
[2021-09-10] MEDS: BUDESONIDE (INHALATION) 0.5 MG/2 ML NEB NEB SCH ×3 (06:46→21:55)
[2021-09-10 07:03] LABS: Basophils # (auto) 0.1 10 ^3/uL (0-0.2); Basophils % (auto) 1.3 % (0.0-2.0); Eosinophils # (auto) 0.3 10 ^3/uL (0-0.8); Eosinophils % (auto) 3.7 % (0.0-7.0); Hematocrit 23.1 % (41.0-53.0); Hemoglobin 7.5 g/dL (13.5-17.5); Lymphocytes # (auto) 1.8 10 ^3/uL (0.4-5.4); Lymphocytes % (auto) 20.3 % (10.0-50.0); Mean Corpuscular Hemoglobin 25.5 pg (28.0-32.0); Mean Corpuscular Hgb Conc. 32.5 g/dL (32.0-36.0); Mean Corpuscular Volume 78.7 fL (80.0-100.0); Monocytes # (auto) 0.7 10 ^3/uL (0-1.3); Monocytes % (auto) 7.9 % (0.0-12.0); Neutrophils # (auto) 5.8 10 ^3/uL (1.6-8.6); Neutrophils % (auto) 66.8 % (37.0-80.0); Red Blood Cells 2.94 10^6/uL (4.5-5.90); White Blood Cell 8.6 10^3/uL (4.4-10.8)
[2021-09-10 07:05] LABS: Red Cell Distribution Width 20.3 % (11.8-14.3)
[2021-09-10 07:21] LABS: Calcium 7.8 mg/dL (8.5-10.1); Potassium 4.5 mmol/L (3.5-5.1)
[2021-09-10 07:26] LABS: BUN/Creatinine Ratio 11.8; Bilirubin, Total 0.4 mg/dL (0.2-1.0)
[2021-09-10 09:00] VITALS: BP 161/64
[2021-09-10] MEDS: AZITHROMYCIN 500MG/ 250ML 250 ML IV SCH (12:08)
[2021-09-10] MEDS: LOSARTAN POTASSIUM 50 MG TAB PO SCH (12:10)
[2021-09-10] MEDS: METOPROLOL TARTRATE 25 MG TAB PO SCH ×2 (12:11→22:31)
[2021-09-10] MEDS: PANTOPRAZOLE 40 MG TAB PO SCH (12:11)
[2021-09-10] MEDS: ENOXAPARIN SOD 30 MG/0.3 ML SYRINGE SC SCH (12:12)
[2021-09-10 13:02] VITALS: BP 138/73
[2021-09-10 17:00] VITALS: BP 131/62
[2021-09-10] MEDS: SODIUM CHLORIDE 0.9% 1,000 ML IV SCH ×2 (20:30→22:30)
[2021-09-10 22:00] VITALS: BP_SYST 139; BP_SYST 142; BP_SYST 151; BP_DIAS 61; BP_DIAS 62; BP_DIAS 67
[2021-09-11] MEDS: ACCU-CHEK COMFORT CURVE STRIP VI SCH ×7 (04:12→23:58)
[2021-09-11] MEDS: InsuLIN REG 1unit/0.01ml Soln (100units/ml) SC SCH ×7 (04:18→23:58)
[2021-09-11 05:00] VITALS: BP 161/77
[2021-09-11 06:10] LABS: Basophils # (auto) 0.1 10 ^3/uL (0-0.2); Eosinophils # (auto) 0.3 10 ^3/uL (0-0.8); Eosinophils % (auto) 4.1 % (0.0-7.0); Hemoglobin 7.5 g/dL (13.5-17.5); Lymphocytes # (auto) 1.3 10 ^3/uL (0.4-5.4); Monocytes # (auto) 0.6 10 ^3/uL (0-1.3); Neutrophils # (auto) 4.8 10 ^3/uL (1.6-8.6); Nucleated Red Blood Cells % 0.1 %
[2021-09-11 06:12] LABS: Basophils % (auto) 1.3 % (0.0-2.0); Hematocrit 23.3 % (41.0-53.0); Mean Corpuscular Hemoglobin 25.9 pg (28.0-32.0); Mean Corpuscular Hgb Conc. 32.1 g/dL (32.0-36.0); Mean Corpuscular Volume 80.8 fL (80.0-100.0); Neutrophils % (auto) 68.6 % (37.0-80.0); Red Blood Cells 2.88 10^6/uL (4.5-5.90)
[2021-09-11 06:27] LABS: Potassium 4.8 mmol/L (3.5-5.1)
[2021-09-11] MEDS: BUDESONIDE (INHALATION) 0.5 MG/2 ML NEB NEB SCH (06:30)
[2021-09-11 06:39] LABS: Albumin 1.7 g/dL (3.4-5.0); BUN/Creatinine Ratio 11.8; Bilirubin, Total 0.4 mg/dL (0.2-1.0); Calcium 7.8 mg/dL (8.5-10.1); Total Protein 5.2 g/dL (6.4-8.2)
[2021-09-11 09:00] VITALS: BP_SYST 104; BP_SYST 130; BP_SYST 151; BP_DIAS 57; BP_DIAS 67; BP_DIAS 74
[2021-09-11] MEDS: AZITHROMYCIN 500MG/ 250ML 250 ML IV SCH (09:50)
[2021-09-11] MEDS: LOSARTAN POTASSIUM 50 MG TAB PO SCH (09:51)
[2021-09-11] MEDS: ENOXAPARIN SOD 30 MG/0.3 ML SYRINGE SC SCH (09:52)
[2021-09-11] MEDS: METOPROLOL TARTRATE 25 MG TAB PO SCH ×2 (09:52→21:40)
[2021-09-11] MEDS: PANTOPRAZOLE 40 MG TAB PO SCH (09:52)
[2021-09-11] MEDS ORDERED: EPOETIN ALFA-EPBX 10,000 UNIT/1ML VIAL SC ONE (12:40)
[2021-09-11] MEDS ORDERED: SODIUM CHL 0.9% 1000 ML BAG XX ONE (12:45)
[2021-09-11 13:00] VITALS: BP 130/58
[2021-09-11 17:00] VITALS: BP 143/71
[2021-09-11 22:00] VITALS: BP 140/62
[2021-09-12] MEDS: InsuLIN REG 1unit/0.01ml Soln (100units/ml) SC SCH ×3 (04:00→12:58)
[2021-09-12 05:25] VITALS: BP 146/74
[2021-09-12 06:30] LABS: Basophils # (auto) 0.1 10 ^3/uL (0-0.2); Eosinophils # (auto) 0.2 10 ^3/uL (0-0.8); Mean Corpuscular Volume 79.5 fL (80.0-100.0); White Blood Cell 6.3 10^3/uL (4.4-10.8)
[2021-09-12 06:33] LABS: Basophils % (auto) 1.4 % (0.0-2.0); Eosinophils % (auto) 3.7 % (0.0-7.0); Hematocrit 22.7 % (41.0-53.0); Hemoglobin 7.3 g/dL (13.5-17.5); Lymphocytes # (auto) 1.4 10 ^3/uL (0.4-5.4); Lymphocytes % (auto) 21.9 % (10.0-50.0); Mean Corpuscular Hemoglobin 25.7 pg (28.0-32.0); Mean Corpuscular Hgb Conc. 32.3 g/dL (32.0-36.0); Monocytes # (auto) 0.6 10 ^3/uL (0-1.3); Monocytes % (auto) 9.9 % (0.0-12.0); Neutrophils % (auto) 63.1 % (37.0-80.0); Red Blood Cells 2.86 10^6/uL (4.5-5.90); Red Cell Distribution Width 21.7 % (11.8-14.3)
[2021-09-12 06:44] LABS: Albumin 1.9 g/dL (3.4-5.0); Calcium 7.8 mg/dL (8.5-10.1); Potassium 4.2 mmol/L (3.5-5.1)
[2021-09-12 06:53] LABS: BUN/Creatinine Ratio 10.3; Bilirubin, Total 0.4 mg/dL (0.2-1.0); Total Protein 5.3 g/dL (6.4-8.2)
[2021-09-12] MEDS: ACCU-CHEK COMFORT CURVE STRIP VI SCH ×3 (06:59→12:47)
[2021-09-12 09:00] VITALS: BP 126/56
[2021-09-12] MEDS: AZITHROMYCIN 500MG/ 250ML 250 ML IV SCH (09:26)
[2021-09-12] MEDS: METOPROLOL TARTRATE 25 MG TAB PO SCH (09:27)
[2021-09-12] MEDS: PANTOPRAZOLE 40 MG TAB PO SCH (09:28)
[2021-09-12] MEDS: LOSARTAN POTASSIUM 50 MG TAB PO SCH (09:28)
[2021-09-12] MEDS: ENOXAPARIN SOD 30 MG/0.3 ML SYRINGE SC SCH (09:28)
[2021-09-12 13:17] VITALS: BP 116/62
== END 2021-09-12 14:08 | disposition home health service (06) | DRG 312 ==
LOC: EDBD 13:33 → EDUNIT# 13:33 → ER 13:33 → TELE-WESTW 20:07
PROVIDERS: ADMIT Family Medicine; ATTEND Family Medicine
PROC: 5A1D70Z Performance of Urinary Filtration, Intermittent, Less than 6 Hours Per Day (ICD-10-PCS; principal; 2021-09-08)
DX: R55 Syncope and collapse (principal); J96.01 Acute respiratory failure with hypoxia; E43 Unspecified severe protein-calorie malnutrition; N18.6 End stage renal disease; I13.2 Hypertensive heart and chronic kidney disease with heart failure and with stage 5 chronic kidney disease, or end stage renal disease; J44.1 Chronic obstructive pulmonary disease with (acute) exacerbation; E11.649 Type 2 diabetes mellitus with hypoglycemia without coma; D63.8 Anemia in other chronic diseases classified elsewhere; E86.0 Dehydration; E66.9 Obesity, unspecified; I25.10 Atherosclerotic heart disease of native coronary artery without angina pectoris; G47.10 Hypersomnia, unspecified; E11.22 Type 2 diabetes mellitus with diabetic chronic kidney disease; E78.5 Hyperlipidemia, unspecified; F17.200 Nicotine dependence, unspecified, uncomplicated; Z96.642 Presence of left artificial hip joint; R53.81 Other malaise; Z20.822 Contact with and (suspected) exposure to COVID-19; I50.9 Heart failure, unspecified; K59.00 Constipation, unspecified; Z79.02 Long term (current) use of antithrombotics/antiplatelets; Z99.2 Dependence on renal dialysis; Z68.23 Body mass index [BMI] 23.0-23.9, adult; I25.2 Old myocardial infarction; Z79.4 Long term (current) use of insulin; Z79.899 Other long term (current) drug therapy; Z80.0 Family history of malignant neoplasm of digestive organs; Z80.1 Family history of malignant neoplasm of trachea, bronchus and lung; Z80.8 Family history of malignant neoplasm of other organs or systems; Z82.49 Family history of ischemic heart disease and other diseases of the circulatory system; Z83.3 Family history of diabetes mellitus; Z86.73 Personal history of transient ischemic attack (TIA), and cerebral infarction without residual deficits; Z95.5 Presence of coronary angioplasty implant and graft; Z88.0 Allergy status to penicillin
CPT/HCPCS: 36415; 36600; 70450; 70551; 71045; 80053; 82805; 82962; 83036; 83880; 84443; 84484; 85025; 85610; 87081; 87426; 90935; 93005; 93886; 94640; 95819; 97110; 97116; 97530; G0378; J1815

== ENCOUNTER 2021-09-14 03:18 | Emergency (ER) | payer MEDICARE, OTHER ==
[~2021-09-14] VITALS: Ht 185.4 cm; Wt 122.5 kg
[~2021-09-14 03:18] MED LIST changes: -CLIN300C8 PO; -SEMA2INJ SC; -TRIA0.1O EX
[2021-09-14] MEDS ORDERED: DEXTROSE 10% 1,000 ML IV SCH (03:45)
[2021-09-14] MEDS ORDERED: DEXTROSE (50%) 50ML SYRG IV ONE ×2 (03:45→04:00)
[2021-09-14] MEDS ORDERED: ACCU-CHEK COMFORT CURVE STRIP VI ONE ×2 (03:45→04:00)
[2021-09-14] MEDS ORDERED: D5W 5% 1,000 ML IV ONE (04:50)
[2021-09-14 06:46] LABS: Basophils # (auto) 0 10 ^3/uL (0-0.2); Eosinophils # (auto) 0 10 ^3/uL (0-0.8); Eosinophils % (auto) 0.1 % (0.0-7.0); Hematocrit 25.6 % (41.0-53.0); Hemoglobin 8.1 g/dL (13.5-17.5); Lymphocytes # (auto) 0.7 10 ^3/uL (0.4-5.4); Mean Corpuscular Hgb Conc. 31.7 g/dL (32.0-36.0); Monocytes # (auto) 0.5 10 ^3/uL (0-1.3)
[2021-09-14 06:48] LABS: Basophils % (auto) 0.5 % (0.0-2.0); Lymphocytes % (auto) 6.7 % (10.0-50.0); Mean Corpuscular Hemoglobin 25.4 pg (28.0-32.0); Mean Corpuscular Volume 80.3 fL (80.0-100.0); Monocytes % (auto) 4.5 % (0.0-12.0); Neutrophils # (auto) 9.2 10 ^3/uL (1.6-8.6); Neutrophils % (auto) 88.2 % (37.0-80.0); Red Blood Cells 3.19 10^6/uL (4.5-5.90); Red Cell Distribution Width 22.2 % (11.8-14.3); White Blood Cell 10.4 10^3/uL (4.4-10.8)
[2021-09-14 07:06] LABS: Albumin 2.2 g/dL (3.4-5.0); Calcium 8.1 mg/dL (8.5-10.1); Potassium 3.8 mmol/L (3.5-5.1)
[2021-09-14 07:14] LABS: BUN/Creatinine Ratio 10.2; Bilirubin, Total 0.3 mg/dL (0.2-1.0); Total Protein 5.8 g/dL (6.4-8.2)
[2021-09-14 08:00] VITALS: BP 163/73
[2021-09-14 10:27] LABS: Urine Bacteria NONE SEEN /hpf (None Seen); Urine Blood Negative /uL (Negative); Urine Specific Gravity 1.011 (1.001-1.035); Urine WBC <1 /hpf (0 - 3)
== END 2021-09-14 09:11 | disposition home or self-care (01) ==
LOC: EDBD 03:18 → ER 03:18
DX: E11.649 Type 2 diabetes mellitus with hypoglycemia without coma (principal); I11.0 Hypertensive heart disease with heart failure; I50.9 Heart failure, unspecified; R41.82 Altered mental status, unspecified; J44.9 Chronic obstructive pulmonary disease, unspecified; E78.5 Hyperlipidemia, unspecified; Z88.0 Allergy status to penicillin
CPT/HCPCS: 36415; 70450; 70486; 71045; 72125; 72170; 73100; 73120; 80053; 81001; 83605; 84484; 85025; 93005; 96360; 96361; 99285; J7030; J7060